=== PATIENT | female | born 1965 | race African-American/Black ===

== ENCOUNTER → 2017-01-28 | Outpatient (CLI) | payer OTHER ==
[~2017-01-28] MED LIST: ALLEGRA60 MG PO; BUSPAR15 M3 PO; BYSTOLIC10 MG PO; CLEOCIN; FLUTICASONE PRO16 GM; IBUPROFEN800 MG PO; LEVOCETIRIZINE D5 MG PO; LIPITOR PO; MOBIC15 MG PO; MOTION RELIEF25 MG PO; NEXIUM PO; OPTIVAR OPHTHA1 DROP OU; TRIAMTERENE-HC1 EAC1 PO; VOLTAREN75 MG PO; WELLBUTRIN PO
--- NOTE | ~2017-01-28 | MY29 ---
[facility] A Service of [facility] RADIOLOGY TEXT RESULTS PATIENT: WASHINGTON GAMBOA LOCATION: [facility] : 67 UNIT #: [id number] AGE: [address]: Rip Banegas MD SEX: F ORDER DR: [id number] [facility] [address] [place], [place] [address] [id number] O MR#: [id number] Acc #: [id number] NAME: WASHINGTON GAMBOA : 1965 SEX: F STUDY DATE/TIME: 01/28/2017 14:51 UNIT: [facility] ROOM: STUDY DESCRIPTION: MY [facility] SCREENING W/ CAD BILAT Attending Physician: Rip Banegas M.D. Referring Physician: Rip Banegas M.D. Ordering Physician: Rip Banegas M.D. Primary Care Physician: Mariza Gamboa M.D. MEDICAL IMAGING REPORT This report is preliminary unless electronic signature is present EXAM Digital screening mammograms, 01/28/17, [facility]. HISTORY 51-year-old female positive family history, great-grandmother in her 30s. Interim ultrasound-guided needle-loc with excisional biopsy December 2015. COMPARISON Comparison mammograms 01/05/13, 12/19/13, 07/26/14, 12/11/15. TECHNIQUE Digital imaging of each breast was completed utilizing screening protocol. Review includes FDA-approved CAD device. FINDINGS Breast parenchyma is predominantly fatty replaced bilaterally. Two small circumscribed nodules in the right breast, inner hemisphere are stable. The dominant circumscribed mass previously noted in the right subareolar location has been excised with residual, a stellate scar now present. I see no suspicious mass characteristics and no interval occurring suspicious microcalcifications. There is no suspicious architectural deformity. IMPRESSION Interim excision of a dominant mass right subareolar location. Benign mammogram. Annual screening recommended. Patients over the age of 40 are entered into a reminder system with target due date for the next mammogram. A result letter will also be sent to the patient. BIRADS: [address] [facility] A Service of [facility] RADIOLOGY TEXT RESULTS PATIENT: WASHINGTON GAMBOA LOCATION: [facility] : 67 UNIT #: [id number] AGE: [address]: Rip Banegas MD SEX: F ORDER DR: Dictated by... Sea Kearns M.D. THIS IS AN ELECTRONICALLY VERIFIED REPORT Sea Kearns M.D. at 01/31/2017 8:12 AM MARIE/simon TD: 01/28/2017 17:41 JOB #: [id number] MEDICAL IMAGING REPORT Page 1 of 1 COPY
== END | disposition home or self-care (01) ==
LOC: CWCC 14:24
DX: Z12.31 Encounter for screening mammogram for malignant neoplasm of breast (principal); Z80.3 Family history of malignant neoplasm of breast; Z98.890 Other specified postprocedural states
CPT/HCPCS: G0202